=== PATIENT | female | born 1980 | race Caucasian/White ===

== ENCOUNTER 2022-10-10 23:46 | Emergency (ER) | payer BC ==
[~2022-10-10] VITALS: Ht 165.1 cm; Wt 74.8 kg
[2022-10-10 23:51] VITALS: BP_SYST 131; PULSE 69; RESP 18; TEMP 98.3; O2SAT 100
[2022-10-11 01:42] VITALS: BP_SYST 131; PULSE 69; RESP 18; TEMP 98.3; O2SAT 100
== END 2022-10-11 01:12 | disposition home or self-care (01) ==
LOC: SED 23:46
DX: F43.9 Reaction to severe stress, unspecified (principal); Z79.899 Other long term (current) drug therapy
CPT/HCPCS: 99283